=== PATIENT | male | born 1955 | race Caucasian/White ===

== ENCOUNTER 2025-08-13 07:07 | Day surgery (SDC) | payer MEDICARE ==
[2025-08-12 14:01] VITALS: BMI 31.1
[~2025-08-13 07:07] MED LIST: Fluorouracil 100 MG, Enoxaparin 25 MG, EPINEPHrine 0.3 MG in Ophthalmic Irrigation Solu... IRR SCH
[2025-08-13] MEDS ORDERED: Lidocaine 1% PF 5 ML VIAL ONE ×2 (08:27→09:15)
[2025-08-13] MEDS ORDERED: PROPOFOL 20 ML ONE (08:27)
[2025-08-13] MEDS ORDERED: Cyclopentolate 1% Opth Drop 2 ML BOT ONE (08:29)
[2025-08-13 08:56] LABS: #Basophils 0.10 10x3/uL (0.0-0.2); #Eosinophils 0.72 10x3/uL (0.0-0.7); #Monocytes 0.96 10x3/uL (0.11-0.59); #Neutrophils 7.22 10x3/uL (1.40-6.50); %Basophils 0.9 % (0.0-1.0); %Eosinophils 6.3 % (0.0-10.0); %Lymphocytes 21.0 % (21.0-51.0); %Monocytes 8.4 % (0.0-10.0); %Neutrophils 63.0 % (42.0-75.0); Hematocrit 45.8 % (42.0-52.0); Hemoglobin 14.5 g/dL (14.0-18.0); Mean Corpuscular Hemoglobin 30.1 pg (27.0-31.0); Mean Corpuscular Volume 95.2 fL (78.0-98.0); Platelet Count 249 10x3/uL (130-400); Red Blood Cell (RBC) Count 4.81 mill/uL (4.70-6.10); White Blood Cell (WBC) Count 11.46 10x3/uL (4.8-10.8)
[2025-08-13] MEDS ORDERED: Lidocaine 4% PF 5 ML AMP ONE (09:15)
[2025-08-13] MEDS ORDERED: Maxitrol 0.1% Opth Oint 3.5 GM TUBE ONE (09:15)
[2025-08-13] MEDS ORDERED: CEFAZOLIN 1 GM VIAL ONE (09:15)
[2025-08-13] MEDS ORDERED: Enoxaparin 30 MG (0.3 mL) SYRINGE ONE (09:15)
== END 2025-08-13 11:42 | disposition home or self-care (01) ==
LOC: SDC 07:07
PROVIDERS: ATTEND Ophthalmology Retina Specialist
PROC: 08T53ZZ Resection of Left Vitreous, Percutaneous Approach (ICD-10-PCS; principal; 2025-08-13)
PROC: 08NF3ZZ Release Left Retina, Percutaneous Approach (ICD-10-PCS; 2025-08-13)
DX: H35.342 Macular cyst, hole, or pseudohole, left eye (principal); I10 Essential (primary) hypertension; Z86.73 Personal history of transient ischemic attack (TIA), and cerebral infarction without residual deficits
CPT/HCPCS: 67025; 67042; 85025; 93005; J0166; J0690; J1650; J2250; J2704; J3301; J3490; J9190; 93010